=== PATIENT | male | born 1945 | race American Indian/Alaskan Native ===

== ENCOUNTER 2018-08-03 11:44 | Emergency (ER) | payer MEDICARE ==
[2018-08-03 12:44] LABS: Basophils # (Auto) 0.1 K/mm3 (0.0-0.1); Basophils % (Auto) 0.6 % (0.0-1.8); Eosinophils % (Auto) 0.1 % (0.0-4.3); Hematocrit 43.8 % (35.5-45.6); Hemoglobin 14.8 gm/dl (11.8-15.2); Lymphocytes % (Auto) 10.1 % (13.4-35.0); Mean Corpuscular HGB Conc 34 % (32-34); Mean Corpuscular Hemoglobin 31 pg (28-32); Mean Corpuscular Volume 92 fl (84-94); Monocytes # (Auto) 0.9 K/mm3 (0.0-0.8); Monocytes % (Auto) 8.3 % (0.0-7.3); Platelet Count 178 K/mm3 (140-440); Red Blood Count 4.76 M/mm3 (3.65-5.03); Red Cell Distribution Width 13.6 % (13.2-15.2)
[2018-08-03 12:54] LABS: INR 1.13 (0.87-1.13); Partial Thromboplastin Time 27.2 Sec. (24.2-36.6)
[2018-08-03 13:06] LABS: BUN/Creatinine Ratio 20; Blood Urea Nitrogen 28 mg/dL (9-20); Hemolysis Index 15
[2018-08-03 13:10] LABS: Alanine Aminotransferase 12 units/L (7-56)
[2018-08-03 13:11] LABS: Bilirubin,Direct < 0.2 mg/dL (0-0.2)
--- NOTE | 2018-08-03 13:44 | Emergency Department Report ---
ED Neuro Deficit HPI - General Chief Complaint: Weakness Stated Complaint: ALTERED MENTAL STATUS Time Seen by Provider: 08/03/18 12:21 Source: patient, family, EMS Mode of arrival: Stretcher Limitations: Altered Mental Status, Physical Limitation - History of Present Illness Initial Comments: 73-year-old male was found with an inability to walk by his family this morning. He had not been seen for 2 days. He lives alone. The patient still thinks that he can "drive and drink a beer" per what he told the nursing staff. He does appear to have some neglect of his left side which has an apparent hemiparesthesias. He is aware of his name date and his birthday. He is speaking coherently. He is not aware of the presence of a stroke syndrome. His family was neither aware of his hemiparesis. He was transported to this facility for further evaluation via paramedics who identified his stroke syndrome. -: days(s) (over the last 2 days) Location: left face, left arm, left leg Presenting Symptoms: Present: Weak/Paralyzed One Side History of same: No (family states no prior history of stroke) Place: home Severity: moderate, severe Quality: weak Improves With: none Worsens With: none On Anticoagulants: No Context: other (unknown onset) Associated Symptoms: denies other symptoms (patient has no specific complaint actually) Treatments Prior to Arrival: none - Related Data Allergies/Adverse Reactions: Allergies Allergy/AdvReac Type Severity Reaction Status Date / Time No Known Allergies Allergy Unverified 08/03/18 12:15 ED Review of Systems ROS: Stated complaint: ALTERED MENTAL STATUS Other details as noted in HPI Comment: Unobtainable due to pts medical conditions ED Past Medical Hx - Past Medical History Previous Medical History?: Yes Hx Hypertension: Yes Hx Diabetes: Yes Additional medical history: prostate issues - Surgical History Hx Pacemaker: Yes - Social History Smoking Status: Current Every Day Smoker Substance Use Type: Alcohol ED Neuro Physical Exam - General Limitations: Altered Mental Status, Physical Limitation General appearance: alert, in no apparent distress Suspected Stroke: Yes - Head Head exam: Present: atraumatic, normocephalic - Eye Eye exam: Present: normal appearance, PERRL, EOMI. Absent: scleral icterus - ENT ENT exam: Present: mucous membranes moist, other (partial facial paresis on the left) - Neck Neck exam: Present: normal inspection. Absent: tenderness, meningismus - Respiratory Respiratory exam: Present: normal lung sounds bilaterally. Absent: respiratory distress - Cardiovascular Cardiovascular Exam: Present: regular rate, normal rhythm. Absent: systolic murmur, diastolic murmur, rubs, gallop - GI/Abdominal GI/Abdominal exam: Present: soft, normal bowel sounds. Absent: distended, tenderness, guarding, rebound, rigid - Rectal Rectal exam: Present: deferred - Extremities Exam Extremities exam: Present: normal inspection - Back Exam Back exam: Present: normal inspection - Neurological Exam Neurological exam: Present: alert, oriented X3, motor sensory deficit. Absent: CN II-XII intact - NIHSS Assessment Interval: Baseline 1a. Level of Consciousness: alert 1b. LOC Questions: answers correctly 1c. LOC Commands: performs tasks correctly 2. Best Gaze: normal 3. Visual: no visual loss 4. Facial Palsy: minor paralysis 5b. Motor Arm Right: no drift 5a. Motor Arm Left: some gravity effort 6a. Motor Leg Left: no gravity effort 6b. Motor Leg Right: no drift 7. Limb Ataxia: absent 8. Sensory: mild/moderate sensory loss 9. Best Language: no aphasia 10. Dysarthria: normal 11. Extinction/Inattention: visual/tactile inattention Total Score: 8 Stroke Severity: Moderate Stroke - Psychiatric Psychiatric exam: Present: normal affect, normal mood - Skin Skin exam: Present: warm, dry, intact, normal color. Absent: rash ED Course Vital Signs 08/03/18 08/03/18 12:06 13:30 Temperature 97.6 F Pulse Rate 107 H Respiratory 16 Rate Blood Pressure 130/101 O2 Sat by Pulse 94 97 Oximetry - Reevaluation(s) Reevaluation #1: I discussed the patient's scan with the stroke neurologist at [facility]. I am awaiting a call back. I placed the films on the regional packs. He will be looking at them. He will be consult to neurosurgery. We will be transferring the patient. I will get further recommendations on any stabilizing efforts here when he calls back. The patient's blood pressure has been within the normal range. 08/03/18 13:45 Reevaluation #2: I spoke with Dr. Willis again, the neurologist at [facility]. He arranged for tx to [facility]. He agreed with a small dose of Decadron at this point. He did not recommend mannitol or hypertonic saline. I spoke with Dr. Dale the corn cooker at [facility]. The patient is stable for transfer. I'm still awaiting the official radiology interpretation of his CT scan. 08/03/18 14:06 - Lab Data Result diagrams: 08/03/18 12:27 08/03/18 12:27 Lab Results 08/03/18 08/03/18 08/03/18 Range/Units 12:27 12:27 12:27 WBC 10.3 (4.5-11.0) K/mm3 RBC 4.76 (3.65-5.03) M/mm3 Hgb 14.8 (11.8-15.2) gm/dl Hct 43.8 (35.5-45.6) % MCV 92 (84-94) fl MCH 31 (28-32) pg MCHC 34 (32-34) % RDW 13.6 (13.2-15.2) % Plt Count 178 (140-440) K/mm3 Lymph % (Auto) 10.1 L (13.4-35.0) % Jerome % (Auto) 8.3 H (0.0-7.3) % Eos % (Auto) 0.1 (0.0-4.3) % Baso % (Auto) 0.6 (0.0-1.8) % Lymph # 1.0 L (1.2-5.4) K/mm3 Jerome # 0.9 H (0.0-0.8) K/mm3 Eos # 0.0 (0.0-0.4) K/mm3 Baso # 0.1 (0.0-0.1) K/mm3 Seg Neutrophils % 80.9 H (40.0-70.0) % Seg Neutrophils # 8.4 H (1.8-7.7) K/mm3 PT 15.0 H (12.2-14.9) Sec. INR 1.13 (0.87-1.13) APTT 27.2 (24.2-36.6) Sec. Thrombin Time (15.1-19.6) Sec. Sodium 141 (137-145) mmol/L Potassium 4.0 (3.6-5.0) mmol/L Chloride 104.8 (98-107) mmol/L Carbon Dioxide 22 (22-30) mmol/L Anion Gap 18 mmol/L BUN 28 H (9-20) mg/dL Creatinine 1.4 (0.8-1.5) mg/dL Estimated GFR > 60 ml/min BUN/Creatinine Ratio 20 % Glucose 156 H (75-100) mg/dL Calcium 9.0 (8.4-10.2) mg/dL Total Bilirubin (0.1-1.2) mg/dL Direct Bilirubin (0-0.2) mg/dL Indirect Bilirubin mg/dL AST (5-40) units/L ALT (7-56) units/L Alkaline Phosphatase (35-129) units/L Troponin T 0.013 (0.00-0.029) ng/mL NT-Pro-B Natriuret Pep (0-900) pg/mL Total Protein (6.3-8.2) g/dL Albumin (3.9-5) g/dL Albumin/Globulin Ratio % 08/03/18 08/03/18 Range/Units 12:27 12:27 WBC (4.5-11.0) K/mm3 RBC (3.65-5.03) M/mm3 Hgb (11.8-15.2) gm/dl Hct (35.5-45.6) % MCV (84-94) fl MCH (28-32) pg MCHC (32-34) % RDW (13.2-15.2) % Plt Count (140-440) K/mm3 Lymph % (Auto) (13.4-35.0) % Jerome % (Auto) (0.0-7.3) % Eos % (Auto) (0.0-4.3) % Baso % (Auto) (0.0-1.8) % Lymph # (1.2-5.4) K/mm3 Jerome # (0.0-0.8) K/mm3 Eos # (0.0-0.4) K/mm3 Baso # (0.0-0.1) K/mm3 Seg Neutrophils % (40.0-70.0) % Seg Neutrophils # (1.8-7.7) K/mm3 PT (12.2-14.9) Sec. INR (0.87-1.13) APTT (24.2-36.6) Sec. Thrombin Time 15.8 (15.1-19.6) Sec. Sodium (137-145) mmol/L Potassium (3.6-5.0) mmol/L Chloride (98-107) mmol/L Carbon Dioxide (22-30) mmol/L Anion Gap mmol/L BUN (9-20) mg/dL Creatinine (0.8-1.5) mg/dL Estimated GFR ml/min BUN/Creatinine Ratio % Glucose (75-100) mg/dL Calcium (8.4-10.2) mg/dL Total Bilirubin 0.60 (0.1-1.2) mg/dL Direct Bilirubin < 0.2 (0-0.2) mg/dL Indirect Bilirubin 0.4 mg/dL AST 23 (5-40) units/L ALT 12 (7-56) units/L Alkaline Phosphatase 86 (35-129) units/L Troponin T (0.00-0.029) ng/mL NT-Pro-B Natriuret Pep 4082 H (0-900) pg/mL Total Protein 7.4 (6.3-8.2) g/dL Albumin 3.0 L (3.9-5) g/dL Albumin/Globulin Ratio 0.7 % - EKG Data -: EKG Interpreted by Me EKG shows normal: sinus rhythm, intervals, QRS complexes, ST-T waves Rate: tachycardia Interpretation: other (occasional PVCs. Sinus tachycardia. Intra-atrial conduction delay. Poor R-wave progression. Left axis deviation.) - Radiology Data interpreted by me: Intracranial hemorrhage. Large with edema. There is some compression of the frontal horn. There is some slight midline shift. Critical Care Time: Yes Critical care time in (mins) excluding proc time.: 100 Critical care attestation.: If time is entered above; I have spent that time in minutes in the direct care of this critically ill patient, excluding procedure time. ED Disposition Clinical Impression: Cerebral hemorrhage Disposition: DC/TX-70 ANOTHER TYPE HLTHCARE Is pt being admited?: No Does the pt Need Aspirin: No Condition: Stable Referrals: PRIMARY CARE, [Primary Care Provider] - 3-5 Days Time of Disposition: 14:10
--- NOTE | 2018-08-03 14:23 | Cat Scan Report ---
FINAL REPORT PROCEDURE: CT HEAD/BRAIN WO CON TECHNIQUE: Computerized tomography of the head was performed without contrast material. HISTORY: neuro deficits COMPARISON: No prior studies are available for comparison. FINDINGS: There is a large area of acute parenchymal hemorrhage in the right frontal lobe, measuring up to 5.2 centimeters. There is surrounding mass effect. This could be related to a hemorrhagic mass. There is 4 millimeters right to left midline shift. No hydrocephalus. Basal cisterns are preserved. Calvarium is intact. There is left maxillary sinus mucosal thickening. Mastoids are aerated. IMPRESSION: There is acute parenchymal hemorrhage in the right frontal lobe with surrounding edema. Etiology is uncertain. Cannot exclude underlying neoplasm or vascular malformation. Findings were discussed with Dr. Mitchell by telephone at 1:20 p.m. central standard time on 08/03/2018
[2018-08-03 14:39] VITALS: BP 131/70
== END 2018-08-03 15:40 | disposition other institution (70) ==
LOC: ED 11:44
DX: I61.8 Other nontraumatic intracerebral hemorrhage (principal); I10 Essential (primary) hypertension; E11.9 Type 2 diabetes mellitus without complications; F17.200 Nicotine dependence, unspecified, uncomplicated
CPT/HCPCS: 36415; 70450; 80048; 80074; 82962; 83880; 84484; 85025; 85610; 85670; 85730; 93005; 93010; 99291; 99292